=== PATIENT | female | born 1975 | race African-American/Black ===

== ENCOUNTER 2019-07-15 08:18 | Emergency (ER) | payer BC ==
[~2019-07-15] VITALS: Ht 165.1 cm; Wt 72.6 kg
[2019-07-15] MEDS ORDERED: LISINOPRIL-HCT1 EAC1 PO (08:24)
[2019-07-15] MEDS ORDERED: MOBIC15 MG PO (10:36)
[2019-07-15 10:48] VITALS: BP 156/91
--- NOTE | 2019-07-15 12:15 | EKG ---
[facility] [place] [address] [address] ELECTROCARDIOGRAM REPORT Name: LIZZ ARTEAGA Room #: DEP [facility] [id number] Admission: 07/15/19 Attend Phys: Discharge: 07/15/19 Date of : 77 Report #: [id number] THIS REPORT FOR: cc: Aguilar Adams James A. DO Couchonnal, Luis F. MD ~ THIS REPORT FOR: //name// [facility] ED Test Date: 2019-07-15 Test Time: 10:03:29 Pat Name: LIZZ ARTEAGA Department: Room: Gender: F Manganese Wheeler: JESUSITA : 1975 Requested By: Kitty Aviles Order Number: [id number] MD: Vince Georges Measurements Intervals [place] Rate: 102 P: 60 OR: 187 QRS: 65 QRSD: 80 T: -1 QT: 350 QTc: 456 Interpretive Statements Sinus tachycardia Probable left atrial enlargement Borderline T wave abnormalities No previous ECG available for comparison Electronically Signed On 07-15-2019 12:13:59 CDT by Vince Georges [email or web address] <ELECTRONICALLY SIGNED> By: Vince Georges MD 07/15/19 1213 1003 Vince Georges MD /HAILEY
== END 2019-07-15 10:52 | disposition home or self-care (01) ==
LOC: ER 08:18
DX: S29.012A Strain of muscle and tendon of back wall of thorax, initial encounter (principal); R07.89 Other chest pain; R06.02 Shortness of breath; R53.83 Other fatigue; I10 Essential (primary) hypertension; Z79.899 Other long term (current) drug therapy; X50.0XXA Overexertion from strenuous movement or load, initial encounter; Y93.89 Activity, other specified; Y92.89 Other specified places as the place of occurrence of the external cause; Y99.8 Other external cause status